=== PATIENT | female | born 1980 | race Caucasian/White ===

== ENCOUNTER 2019-02-16 21:23 | Emergency (ER) | payer BC ==
[2019-02-16 21:51] VITALS: BP 102/75; PULSE 100; TEMP 98.5; BMI 41.6
[2019-02-16 22:49] LABS: AMORP PHOS 1+ /hpf (NONE SEEN); EPITHELIAL CELLS FEW /hpf
[2019-02-16 22:58] LABS: BASO % 0.6 % (0-2.0); EOS % 1.1 % (0-4.5); HEMATOCRIT 41.7 % (32.4-45.2); LYMPH % 37.6 % (8-40); MCH 28.7 pg (25.7-33.7); MCHC 33.6 g/dl (32.0-36.0); MEAN CELL VOLUME 85.4 fl (80-96); MEAN PLT VOLUME 7.7 fl (7.5-11.1); MONO % 6.6 % (3.8-10.2); NEUT % 54.1 % (42.8-82.8); PLATELET COUNT 352 K/MM3 (134-434); RBC 4.89 M/mm3 (3.60-5.2); RDW 12.4 % (11.6-15.6); WHITE BLOOD COUNT 10.4 K/mm3 (4.0-10.8)
[2019-02-16 23:11] LABS: ALBUMIN 3.9 g/dl (3.4-5.0); BILIRUBIN,TOTAL 0.3 mg/dl (0.2-1); CALCIUM 8.6 mg/dl (8.5-10); CREATININE 0.8 mg/dl (0.55-1.3); POTASSIUM 3.7 mmol/L (3.5-5.1); TOT PROT 6.6 g/dl (6.4-8.2)
--- NOTE | 2019-02-17 00:16 | PDOC ---
Documentation entered by Jolly Golden SCRIBE, acting as scribe for Agnieszka Flores MD. Agnieszka Flores MD: This documentation has been prepared by the Chantel lewis Brenda, SCRIBE, under my direction and personally reviewed by me in its entirety. I confirm that the documentation accurately reflects all work, treatment, procedures, and medical decision making performed by me. History of Present Illness - General Chief Complaint: Pain, Acute Stated Complaint: UPPER ABDOMINAL PAIN X 1 WEEK History Source: Patient Exam Limitations: No Limitations - History of Present Illness Initial Comments: 02/16/19 22:16 The patient is a 38 year old female, from [facility], sent by the urgent cares nurse practitioner, with a significant PMH of bulimia (since 14 y.o), anorexia, gastroparesis, celiac disease, polycystic ovarian syndrome and WI in 2013 (due to eating disorders, which lead to low potassium), who presents to the emergency department with 1 week of upper abdominal pain. Patient states that the pain is aggravated upon eating, and lasts 30 minutes post eating. She notes that after 30 minutes the pain is mildly relieved, however she does feel bloated for the remainder of the day. Patient does state being constipated, but notes that it might be a chronic issue. She states that her pain that prompted her to come to the ED, feels different than symptoms of gastroparesis. She also states that she currently still has kidney stones in her left kidney, but had some kidney stones surgically removed from her right kidney a few months ago. She also notes having an endoscopy done in 2016, which tested positive for celiac disease. The patient denies chest pain, shortness of breath, headache and dizziness. Denies fever, chills, nausea, vomiting, diarrhea. Denies dysuria, frequency, urgency and hematuria. Allergies: divalproex sodium, meperidine Past surgical history: Cholecystectomy, Kidney stone surgical removal Social history: Denies history of smoking, alcohol use or illicit drug use. Past History - Past Medical History Allergies/Adverse Reactions: Allergies Allergy/AdvReac Type Severity Reaction Status Date / Time divalproex sodium Allergy Verified 02/16/19 21:27 [From Depakote] meperidine [From Demerol] Allergy Verified 02/16/19 21:27 Home Medications: Ambulatory Orders Clonazepam [Klonopin] 1 mg PO TID 02/16/19 Duloxetine HCl [Cymbalta] 90 mg PO DAILY 02/16/19 Lamotrigine [Lamictal] 200 mg PO BID 02/16/19 Liraglutide [Victoza -] 1.2 mg SQ DAILY@0700 02/16/19 Pantoprazole Sodium [Protonix] 40 mg PO BID 02/16/19 Prazosin HCl [Minipress] 2 mg PO HS 02/16/19 Progesterone 400 mg PO HS 02/16/19 Trazodone HCl 200 mg PO HS 02/16/19 Zonisamide 100 mg PO BID 02/16/19 Review of Systems - Review of Systems Able to Perform ROS?: Yes Comments:: 02/16/19 22:16 GENERAL/CONSTITUTIONAL: No fever or chills. No weakness. HEAD, EYES, EARS, NOSE AND THROAT: No change in vision. No ear pain or discharge. No sore throat. CARDIOVASCULAR: No chest pain or shortness of breath. RESPIRATORY: No cough, wheezing, or hemoptysis. GASTROINTESTINAL:(+) Abdominal pain. No nausea, vomiting, diarrhea.. GENITOURINARY: No dysuria, frequency, or change in urination. MUSCULOSKELETAL: No joint or muscle swelling or pain. No neck or back pain. SKIN: No rash NEUROLOGIC: No headache, vertigo, loss of consciousness, or change in strength/ sensation. ENDOCRINE: No increased thirst. No abnormal weight change. HEMATOLOGIC/LYMPHATIC: No anemia, easy bleeding, or history of blood clots. ALLERGIC/IMMUNOLOGIC: No hives or skin allergy. *Physical Exam - Physical Exam Comments: 02/16/19 22:16 GENERAL: Awake, alert, and fully oriented, in no acute distress HEAD: No signs of trauma EYES: PERRLA, EOMI, sclera anicteric, conjunctiva clear ENT: (+) Dry mucous membranes. Auricles normal inspection, hearing grossly normal, nares patent, oropharynx clear without exudates. NECK: Normal ROM, supple, no lymphadenopathy, JVD, or masses LUNGS: Breath sounds equal, clear to auscultation bilaterally. No wheezes, and no crackles HEART: Regular rate and rhythm, normal S1 and S2, no murmurs, rubs or gallops ABDOMEN: (+) Mild diffuse tenderness to palpation Soft, normoactive bowel sounds. No guarding, no rebound. No masses EXTREMITIES: Normal range of motion, no edema. No clubbing or cyanosis. No cords, erythema, or tenderness NEUROLOGICAL: Cranial nerves II through XII grossly intact. Normal speech, normal gait SKIN: Warm, Dry, normal turgor, no rashes or lesions noted. ED Treatment Course - LABORATORY CBC & Chemistry Diagram: 02/16/19 22:40 02/16/19 22:45 Medical Decision Making - Medical Decision Making As noted above, 38-year-old woman with a history of eating disorder (bulimia/ anorexia since age 14) currently residing in inpatient eating disorder facility sent here for evaluation of postprandial upper abdominal discomfort and bloating for approximately a week. Patient has a history of gastroparesis ( upper endoscopy several years ago) and has had her gallbladder removed. Her medications include Protonix. Although she has bloating/fullness, her postprandial discomfort resolves after approximately 30 minutes. She has had some mild nausea but no vomiting. Exam as noted with no focal area of tenderness in her abdomen although she has mild to moderate epigastric/right upper quadrant/left upper quadrant tenderness on palpation. There is no rebound tenderness or involuntary guarding present. Twelve-lead electrocardiogram was performed because of patient's apparent acute cardiac issue (possible WI) several years ago: Interpretation by menormal sinus rhythm at 91 bpm. There is poor R wave progression. Otherwise, waveforms, axis and intervals are all normal. No evidence of acute ST or T wave abnormalities. No evidence of acute cardiac arrhythmia. CBC/chemistry profile/amylase/troponin evaluated Although the patient is s/p cholecystectomy, in order to rule out CBD abnormalities upper abdominal ultrasound performed: Preliminary interpretation by Imaging almond blancher -mildly fatty liver without dilatation of biliary ducts or CBD abnormality. Pancreas partially obscured but otherwise appears normal. No other abnormality seen on study. Laboratory evaluation is essentially normal. Results discussed with the patient and with staff member present with patient: no evidence of bowel obstruction or biliary tract abnormality seen today. Patient should continue her medications including Protonix. She should follow- up with brush and broom clipper: Referral information for Dr. Gonzalez provided. Office should be called tomorrow to arrange follow-up within the next few days. If the patient develops more severe pain, fever or vomiting, she should return to the emergency room Discharge - Discharge Information Problems reviewed: Yes Clinical Impression/Diagnosis: Epigastric abdominal pain Condition: Stable Disposition: HOME - Follow up/Referral Referrals: Balbina Gonzalez MD [Staff Physician] - - Patient Discharge Instructions Patient Printed Discharge Instructions: DI for Epigastric Pain Additional Instructions: Continue medications as prescribed Call brush and broom clipper () office in AM to arrange follow-up within the next 2 to 3 days Return to ER if pain is severe or fever/vomiting occurs - Post Discharge Activity
--- NOTE | 2019-02-17 11:20 | EKG ---
Test Reason : Blood Pressure : / mmHG Vent. Rate : 091 BPM Atrial Rate : 091 BPM P-R Int : 140 ms QRS Dur : 082 ms QT Int : 382 ms P-R-T Axes : 042 -06 019 degrees QTc Int : 469 ms NORMAL SINUS RHYTHM CANNOT RULE OUT ANTERIOR INFARCT , AGE UNDETERMINED ABNORMAL ECG NO PREVIOUS ECGS AVAILABLE Confirmed by MD Sherif, Ryan ([id number]) on 02/17/2019 11:20:10 AM Referred By: ANETTE LEACH Confirmed By:Ryan Gorman MD
== END 2019-02-17 00:35 | disposition home or self-care (01) ==
LOC: FER 21:23
DX: R10.13 Epigastric pain (principal); F50.2 Bulimia nervosa; Z88.8 Allergy status to other drugs, medicaments and biological substances
CPT/HCPCS: 36415; 76705-TC; 80053; 81003; 81015; 82150; 82550; 84484; 84703; 85025; 93005; 99282-25

== ENCOUNTER 2019-02-21 19:06 | Emergency (ER) | payer BC ==
[2019-02-21 19:26] VITALS: BP 113/80; PULSE 100; TEMP 98.1; BMI 41.3
[2019-02-21] MEDS ORDERED: SODIUM CHLORIDE 1,000 ML IV ONE (19:29)
--- NOTE | 2019-02-21 19:30 | PDOC ---
Documentation entered by Ronak Reyes SCRIBE, acting as scribe for Riley Huerta MD. Riley Huerta MD: This documentation has been prepared by the Eric lewis Aiswarya, SCRIBE, under my direction and personally reviewed by me in its entirety. I confirm that the documentation accurately reflects all work, treatment, procedures, and medical decision making performed by me. History of Present Illness - General Chief Complaint: Pain Stated Complaint: ABDOMINAL PAIN Time Seen by Provider: 02/21/19 19:10 History Source: Patient Exam Limitations: No Limitations - History of Present Illness Initial Comments: 02/21/19 19:30 Assessment and plan: This is a 38-year-old female with approximately a week and half of chronic upper abdominal pain. Patient was here approximately a week ago had an ultrasound and a work-up that was normal. Patient went to an urgent care center was given medication for constipation which she states she has been taking about 6 times a day. Patient states she has had some intermittent diarrhea but otherwise continues to have upper abdominal pain. Patient went to another urgent care center today and was referred to the ER for further evaluation and work-up of her abdominal pain. Work-up initiated including CBC, comp, CAT scan abdomen and pelvis. Patient given IV fluids 02/21/19 19:37 The patient is a 38 year old female, with a significant PMH of anorexia bulimia diabetes, GERD, and ADHD, who presents to the emergency department with abdominal pain for 5 days ago. The patient states constant non radiating pain is located in the upper abdomen and endorses associated symptoms of intermittent diarrhea. Patient went to an Urgent Care center where she was prescribed an enema and 6 doses of miralax yesterday, no relief. She states she went to another urgent care center today and was referred to the ER for further evaluation and work-up of her abdominal pain. The patient denies chest pain, shortness of breath, headache and dizziness. Denies fever, chills, nausea , and vomit. Denies dysuria, frequency, urgency and hematuria. PAST MEDICAL HISTORY: no significant history PAST SURGICAL HISTORY: no significant history FAMILY HISTORY: no pertinent history SOCIAL HISTORY: Pt lives with family and is employed. MEDICATIONS: reviewed ALLERGIES: As per nursing notes Adult ROS General: No fevers or chills, no weakness, no weight loss HEENT: No change in vision. No sore throat,. No ear pain CardioVascular: No chest pain or shortness of breath Respiratory:No cough, or wheezing. Gastrointestinal: +diarrhea. No nausea, vomiting or constipation, No rectal bleeding Genitourinary: No dysuria, hematuria, or frequency Musculoskeletal: No joint or muscle pain or swelling Neurologic: No headache, vertigo, dizziness or loss of consciousness Psychiatric: nor depression Skin: No rashes or easy bruising Endocrine: no increased thirst or abnormal weight change Allergic: no skin or latex allergy All other systems reviewed and normal Adult Exam: General: +obeses. Well-nourished well-developed individual, no acute distress HEENT: Throat: Normal, tonsils normal, no erythema or exudate Neck: Supple, no meningeal signs, no lymphadenopathy Eyes::Pupils equal reactive and round, extraocular motion intact Chest: Nontender to palpation Cardiac: S1-S2 normal, regular rate and rhythm, no murmurs rubs or gallops Respiratory: Lungs clear to auscultation bilateral Abdomen: Soft, nondistended, normal bowel sounds, nontender to palpation diffusely Extremities: Warm, dry, no cyanosis, clubbing, or edema Skin: No rashes Neuro: Alert and oriented x3, nonfocal exam, grossly intact, normal gait Psych: Normal mood and affect 02/21/19 20:51 Patient's CAT scan shows no acute pathology. There is evidence of polycystic ovary disease, there was note made of an indeterminant 3 cm left adrenal mass patient was given a copy of her CAT scan and this finding was pointed out to her. Patient was instructed to take a copy of her CAT scan report either to a GI doctor or her primary care doctor to have that further evaluated. Patient discharged Past History - Past Medical History Allergies/Adverse Reactions: Allergies Allergy/AdvReac Type Severity Reaction Status Date / Time divalproex sodium Allergy Verified 02/16/19 21:27 [From Depakote] meperidine [From Demerol] Allergy Verified 02/16/19 21:27 Home Medications: Ambulatory Orders Clonazepam [Klonopin] 1 mg PO TID 02/16/19 Duloxetine HCl [Cymbalta] 90 mg PO DAILY 02/16/19 Lamotrigine [Lamictal] 200 mg PO BID 02/16/19 Liraglutide [Victoza -] 1.2 mg SQ DAILY@0700 02/16/19 Pantoprazole Sodium [Protonix] 40 mg PO BID 02/16/19 Prazosin HCl [Minipress] 2 mg PO HS 02/16/19 Progesterone 400 mg PO HS 02/16/19 Zonisamide 100 mg PO BID 02/16/19 Dicyclomine HCl [Bentyl -] 20 mg PO AC 02/21/19 Magnesium Citrate [Citroma -] 195 ml PO ONCE 02/21/19 Polyethylene Glycol 3350 [Miralax (For Daily Use) -] 17 gm PO TID 02/21/19 Sodium Phosphate,Marion-Dibasic [Fleet Enema] 133 ml RC ONCE 02/21/19 traZODone HCL [Trazodone HCl] 100 mg PO HS 02/21/19 COPD: No Diabetes: Yes GI Disorders: Yes (GERD) Psychiatric Problems: Yes (ADHD) - Psycho Social/Smoking Cessation Hx Smoking History: Never smoked Have you smoked in the past 12 months: No Hx Alcohol Use: No Drug/Substance Use Hx: No *Physical Exam - Vital Signs Last Vital Signs Temp Pulse Resp BP Pulse Ox 98.1 F 100 H 18 113/80 100 02/21/19 19:08 02/21/19 19:08 02/21/19 19:08 02/21/19 19:08 02/21/19 19:08 ED Treatment Course - LABORATORY CBC & Chemistry Diagram: 02/21/19 19:30 02/21/19 19:30 - RADIOLOGY Radiology Studies Ordered: Category Date Time Status ABDOMEN & PELVIS CT WITH CONTR [CT] Stat CT Scan 02/21/19 19:18 Ordered Discharge - Discharge Information Problems reviewed: Yes Clinical Impression/Diagnosis: Abdominal pain Qualifiers: Abdominal location: upper abdomen, unspecified Qualified Code(s): R10.10 - Upper abdominal pain, unspecified Condition: Good Disposition: HOME - Admission No - Follow up/Referral Referrals: Wanda Torres NP [Primary Care Provider] - - Patient Discharge Instructions Additional Instructions: It is important that you follow-up with a GI specialist. Take a copy of your CAT scan and blood work with you when you go see GI. Return to the emergency department immediately with ANY new, persistent or worsening symptoms. Continue any medications as previously prescribed by your physician. You should follow up with your primary doctor as soon as possible regarding today's emergency department visit. . Please make sure your doctor reviews the results of your emergency evaluation. Thank you for coming to the Emergency Department today for your care. It was a pleasure to see you today. Please note that your evaluation is INCOMPLETE until you follow-up with your doctor. - Post Discharge Activity
[2019-02-21 19:53] LABS: BASO % 0.8 % (0-2.0); EOS % 1.1 % (0-4.5); HEMOGLOBIN 13.4 GM/dl (10.7-15.3); LYMPH % 27.8 % (8-40); MCH 29.1 pg (25.7-33.7); MCHC 33.6 g/dl (32.0-36.0); MEAN CELL VOLUME 86.7 fl (80-96); MEAN PLT VOLUME 7.7 fl (7.5-11.1); MONO % 5.7 % (3.8-10.2); NEUT % 64.6 % (42.8-82.8); PLATELET COUNT 303 K/MM3 (134-434); RBC 4.62 M/mm3 (3.60-5.2); RDW 12.8 % (11.6-15.6); WHITE BLOOD COUNT 12.1 K/mm3 (4.0-10.8)
[2019-02-21 20:00] LABS: ALBUMIN 3.8 g/dl (3.4-5.0); BILIRUBIN,TOTAL 0.4 mg/dl (0.2-1); CALCIUM 8.5 mg/dl (8.5-10); CREATININE 0.8 mg/dl (0.55-1.3); POTASSIUM 3.8 mmol/L (3.5-5.1); TOT PROT 6.4 g/dl (6.4-8.2)
== END 2019-02-21 21:00 | disposition home or self-care (01) ==
LOC: FER 19:06
PROC: 3E0337Z Introduction of Electrolytic and Water Balance Substance into Peripheral Vein, Percutaneous Approach (ICD-10-PCS; principal; 2019-02-21)
DX: R10.10 Upper abdominal pain, unspecified (principal); E11.9 Type 2 diabetes mellitus without complications; Z79.4 Long term (current) use of insulin; K21.9 Gastro-esophageal reflux disease without esophagitis; F90.9 Attention-deficit hyperactivity disorder, unspecified type; Z88.8 Allergy status to other drugs, medicaments and biological substances
CPT/HCPCS: 36415; 74177-TC; 80053; 85025; 99283-25; J7030

== ENCOUNTER 2019-03-18 15:42 | Emergency (ER) | payer BC ==
[2019-03-18 16:08] VITALS: TEMP 98.5; BMI 40.7
[2019-03-18] MEDS ORDERED: ACETAMINOPHEN 1000 MG/100 ML VIAL (NON FORMULARY) IVPB ONE (16:53)
[2019-03-18] MEDS ORDERED: SODIUM CHLORIDE 0.9% 500 ML INFUS.BAG IV ONE (16:53)
--- NOTE | 2019-03-18 16:57 | PDOC ---
History of Present Illness - General Chief Complaint: Syncope/Near Syncope Stated Complaint: passed out/seizure Time Seen by Provider: 03/18/19 15:46 - History of Present Illness Initial Comments: 03/18/19 16:57 38y/o F hx.of epilepsy, migraines, anorexia, PCOS, gastroparesis,recently treated for bronchitis brought in by EMS after having a seizure at [facility] about an hour ago. Per accompanying caregiver, patient complained of dizziness and asked to sit down. After sitting down, she began to seize. witnesses were able to lay her on the floor on her side. the seizure lasted approximately 6 minutes. there was no head trauma time of incident. Pt remembers feeling dizzy prior to seizure onset, and regained consciousness in the ambulance. Her last seizure was approximately three years ago. She endorses headache, recent stress caused by changes in her insurance coverage, seizure medication adherence.She denies any fevers, chills, dysuria, hematuria, chest pain, shortness of breath. Past History - Past Medical History Allergies/Adverse Reactions: Allergies Allergy/AdvReac Type Severity Reaction Status Date / Time bee pollen Allergy Verified 03/18/19 15:45 divalproex sodium Allergy Verified 03/18/19 15:44 [From Depakote] meperidine [From Demerol] Allergy Verified 03/18/19 15:44 Sulfa (Sulfonamide Allergy Verified 03/18/19 15:45 Antibiotics) Home Medications: Ambulatory Orders Clonazepam [Klonopin] 1 mg PO TID 02/16/19 Duloxetine HCl [Cymbalta] 90 mg PO DAILY 02/16/19 Lamotrigine [Lamictal] 200 mg PO BID 02/16/19 Liraglutide [Victoza -] 1.2 mg SQ DAILY@0700 02/16/19 Pantoprazole Sodium [Protonix] 40 mg PO BID 02/16/19 Prazosin HCl [Minipress] 2 mg PO HS 02/16/19 Progesterone 400 mg PO HS 02/16/19 Zonisamide 100 mg PO BID 02/16/19 Polyethylene Glycol 3350 [Miralax (For Daily Use) -] 17 gm PO BID 02/21/19 traZODone HCL [Trazodone HCl] 100 mg PO HS 02/21/19 Linaclotide [Linzess] 145 mcg PO DAILY 03/18/19 COPD: No Diabetes: Yes GI Disorders: Yes (GERD) Psychiatric Problems: Yes (ADHD) Seizures: Yes Other medical history: celiac dz, - Psycho Social/Smoking Cessation Hx Smoking History: Never smoked Have you smoked in the past 12 months: No Hx Alcohol Use: No Drug/Substance Use Hx: No Review of Systems - Review of Systems Constitutional: No: Chills, Fever HEENTM: No: Eye Pain, Blurred Vision Respiratory: Yes: Cough. No: Shortness of Breath Cardiac (ROS): No: Chest Pain, Palpitations ABD/GI: No: Nausea, Vomiting : No: Burning, Dysuria Musculoskeletal: No: Back Pain Integumentary: No: Bruising, Change in Color Neurological: Yes: Headache. No: Numbness Psychiatric: Yes: Stressors *Physical Exam - Physical Exam 03/18/19 17:08 PE: GENERAL: Awake, alert, and fully oriented, in no acute distress HEAD: No signs of trauma, normocephalic, atraumatic EYES: PERRLA, EOMI, sclera anicteric, conjunctiva clear ENT: Auricles normal inspection, hearing grossly normal, nares patent, oropharynx clear without exudates. Moist mucosa. no tongue lacerations NECK: Normal ROM, supple, no lymphadenopathy, JVD, or masses, no c-spine tenderness. LUNGS: No distress, speaks full sentences, clear to auscultation bilaterally HEART: tachycardic, S1 and S2, no murmurs, rubs or gallops, peripheral pulses normal and equal bilaterally. ABDOMEN: Soft, nontender, normoactive bowel sounds. No guarding, no rebound. No masses EXTREMITIES : Normal inspection, Normal range of motion, no edema. No clubbing or cyanosis NEUROLOGICAL: Cranial nerves II through XII grossly intact. Normal speech, no focal sensorimotor deficits SKIN: Warm, Dry, normal turgor, no rashes or lesions noted ED Treatment Course - LABORATORY CBC & Chemistry Diagram: 03/18/19 16:48 03/18/19 16:48 Medical Decision Making - Medical Decision Making 03/18/19 17:10 38y/o F hx.of epilepsy, migraines, anorexia, PCOS, gastroparesis,recently treated for bronchitis brought in by EMS after having a seizure at [facility] epileptic seizure vs arrhythmia vs infectious cause workup cbc cmp, urine chest x-ray lamictal level Meds: normal saline 1L, tylenol 1000mg IV 03/18/19 17:27 poc glucose 98 urine hcg negative lamotrigine not expecting same day result EKG sinus tachycardia, otherwise normal 03/18/19 17:47 spoke with POLICEWOMAN Joie who isn't currently at the facility. is aware patient has an upcoming cardiology and hoop rolls operator appointment, but is not aware of any neurology follow up at this time Attempts to contact facility were not successful. 03/18/19 18:05 Pt. able to ambulate without incident to the bathroom vitals improved, tachycardia resolved. CXR: Impression. no suspicious findings in the lungs. discharged back to [facility] with instructions and information to arrange prompt neurology follow up. 03/18/19 18:08 Discharge - Discharge Information Problems reviewed: Yes Clinical Impression/Diagnosis: Seizure Condition: Stable Disposition: HOME - Admission No - Follow up/Referral Referrals: Juan R Collado MD [Staff Physician] - Florecita Sharif MD [Staff Physician] - Kip Snyder MD [Staff Physician] - - Patient Discharge Instructions Patient Printed Discharge Instructions: DI for Seizure Disorder -- Adult Additional Instructions: Please follow up with Neurology in the next 1-2 days as an outpatient. We have given you the contact information for three different neurologist. Schedule and appointment as soon as possible.Please continue taking your medications as prescribed. Do not drive or swim until cleared to do so by your neurologist. Return for worsening condition or any other emergencies. - Post Discharge Activity
--- NOTE | 2019-03-18 17:04 | PDOC ---
Attending Attestation - Resident Resident Name: Rosendo Briggs - ED Attending Attestation I have performed the following: I have examined & evaluated the patient, The case was reviewed & discussed with the resident, I agree w/resident's findings & plan - HPI HPI: 03/18/19 16:59 38 year old female, with a significant PMH of anorexia bulimia, diabetes, GERD , and ADHD, epilepsy on lamictal, gastroparesis, migraines BIB EMS who presents to the emergency department for witnessed tonic clonic seizure, a/w urinary incontinence. pt states she was feeling unwell and dizzy, prior to onset of sz. she was laid down into chair and ground with the seizure. no head trauma. pt became alert and woke up in the ambulance, back to baseline and does not remember the event. pt states she has been sick with bronchitis, seen at urgent care yesterday, rx' d albuterol inhaler which she has taken with some relief; no cough or congestion , fever or chills. no abx use. compliant with her meds, as documented in EMR with lamictal 200mg BID. c/o mild headache. took excedrin before noon today and the ibuprofen earlier this afternoon denies . LMP last week, usually irregular with the PCOS and recently restarted on her periods. denies lack of sleep or dietary changes. 03/18/19 17:00 - Physicial Exam PE: 03/18/19 16:59 Agree with the resident's HPI and PE as documented in the electronic medical record. NAD, well appearing, alert and oriented appropriately, NCAT. EOMI, PERRL, nl conjunctiva, anicteric; neck supple. lungs clear, +tachycardia, abdomen soft nontender. No rebound, no guarding. Back nontender. WILSON x4, no focal neuro deficits. No peripheral edema. normal color for ethnicity, WWP. speech clear. - Medical Decision Making 03/18/19 17:00 Vital Signs Temp Pulse Resp BP Pulse Ox 98.5 F 104 H 16 110/74 97 03/18/19 15:43 03/18/19 16:43 03/18/19 16:43 03/18/19 16:43 03/18/19 16:43 vitals with normotensive, +tachycardic, afebrile no seizure activity here, no e/o status epilepticus. neuro intact, back to baseline, GCS 15; no focal neuro deficits c/o primarily nonfocal headache; no confusion, no infectious sx, no neck stiffness/meningeal signs preg neg CXR clear, no infection/infiltrate, no ptx. no effusion. recent infection as possible trigger, decreased PO intake as well compliant with her lamotrigine. nighttime dose given now tylenol for headache. VS improved, no longer tachy, hemodynamically appropriate. Pt to be discharged in stable condition. Patient and facility made aware of clinical impression, treatment recommendations and disposition plan, return precautions discussed (including but not limited to new or persistent/worsening symptoms, pain, fevers, or signs of infection, chest pain, respiratory distress , inability to tolerate oral intake, dehydration, syncope, or neurologic changes ). Follow up with PMD and/or neuro specialist as recommended, follow up information provided, take medications as instructed for duration of time. continue with supportive care, avoid triggers and precipitants. All questions answered to patient's satisfaction and expressed understanding and comfort with this. At the time of discharge, the patient is alert, clinically improved, tolerating po and verbalizes understanding of instructions, satisfied with the care received and felt comfortable with the plan. Patient does not suffer from an acute life-threatening medical condition at this time and is safe for outpatient follow-up. 03/18/19 17:36 03/18/19 17:37 Heart Score/ECG Review #1 ECG reviewed & interpreted by me at: 16:15 General ECG Interpretation: Sinus Rhythm, Normal Intervals Compared to previous ECG there are: Changes noted 03/18/19 17:04 EKG sinus tachycardia at 122 bpm, no interval abnormalities, narrow QRS, ST and T wave segments and morphology normal. Nonspecific T wave abnormalities
[2019-03-18 17:11] LABS: BASO % 0.5 % (0-2.0); EOS % 0.9 % (0-4.5); HEMATOCRIT 39.4 % (32.4-45.2); HEMOGLOBIN 13.5 GM/dl (10.7-15.3); LYMPH % 27.8 % (8-40); MCH 29.7 pg (25.7-33.7); MCHC 34.3 g/dl (32.0-36.0); MEAN CELL VOLUME 86.6 fl (80-96); MEAN PLT VOLUME 7.6 fl (7.5-11.1); MONO % 7.9 % (3.8-10.2); NEUT % 62.9 % (42.8-82.8); PLATELET COUNT 367 K/MM3 (134-434); RBC 4.55 M/mm3 (3.60-5.2); RDW 12.5 % (11.6-15.6); WHITE BLOOD COUNT 8.2 K/mm3 (4.0-10.8)
[2019-03-18] MEDS ORDERED: ACETAMINOPHEN INJECTION 100 ML IVPB ONE (17:12)
[2019-03-18 17:14] LABS: ALBUMIN 3.8 g/dl (3.4-5.0); BILIRUBIN,TOTAL 0.2 mg/dl (0.2-1); CALCIUM 8.8 mg/dl (8.5-10); CREATININE 0.7 mg/dl (0.55-1.3); POTASSIUM 3.5 mmol/L (3.5-5.1); TOT PROT 6.6 g/dl (6.4-8.2)
[2019-03-18] MEDS ORDERED: lamoTRIgine 100 MG TABLET (FP) ONE ×2 (17:25→17:26)
[2019-03-18 17:34] VITALS: BP 106/82; PULSE 91
--- NOTE | 2019-03-19 14:46 | EKG ---
Test Reason : Blood Pressure : / mmHG Vent. Rate : 122 BPM Atrial Rate : 122 BPM P-R Int : 134 ms QRS Dur : 078 ms QT Int : 320 ms P-R-T Axes : 044 -07 041 degrees QTc Int : 456 ms SINUS TACHYCARDIA OTHERWISE NORMAL ECG WHEN COMPARED WITH ECG OF 16-FEB-2019 23:47, NO SIGNIFICANT CHANGE WAS FOUND Confirmed by ALEM PENG MD ([id number]) on 03/19/2019 2:45:28 PM Referred By: DR SANTILLAN Confirmed By:ALEM PENG MD
== END 2019-03-18 18:09 | disposition home or self-care (01) ==
LOC: FER 15:42
PROC: 3E033NZ Introduction of Analgesics, Hypnotics, Sedatives into Peripheral Vein, Percutaneous Approach (ICD-10-PCS; principal; 2019-03-18)
DX: R56.9 Unspecified convulsions (principal); Z91.030 Bee allergy status; Z88.8 Allergy status to other drugs, medicaments and biological substances
CPT/HCPCS: 36415; 71045-TC-FY; 80053; 80175; 82962; 84703; 85025; 93005; 99285-25; J0131

== ENCOUNTER 2019-03-23 17:55 | Emergency (ER) | payer BC ==
[2019-03-23 19:01] VITALS: BP 112/84; PULSE 94; TEMP 97.8; BMI 40.6
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
== END 2019-03-23 20:15 | disposition home or self-care (01) ==
LOC: FER 17:55
DX: R56.9 Unspecified convulsions (principal); Z91.030 Bee allergy status; Z88.8 Allergy status to other drugs, medicaments and biological substances; S06.9X0A Unspecified intracranial injury without loss of consciousness, initial encounter; F90.9 Attention-deficit hyperactivity disorder, unspecified type; K21.9 Gastro-esophageal reflux disease without esophagitis; E11.9 Type 2 diabetes mellitus without complications
CPT/HCPCS: 70450-TC; 99281-25